=== PATIENT | female | born 1965 | race Hispanic/Latino ===

== ENCOUNTER 2018-04-29 13:55 | Emergency (ER) | payer SELFPAY ==
[2018-04-29 16:13] LABS: Absolute Lymphocytes (CBC) 1.6 K/uL (0.7-4.9); Absolute Monocytes 0.4 K/uL (0.1-1.3); Absolute Neutrophil 3.5 K/uL (1.8-8.0); Basophils % 1.2 % (0-1.3); Eosinophils % 2.7 % (0-4.4); Hematocrit 28.1 % (36.0-45.0); Lymphocytes % 27.8 % (15.3-44.8); MPV 7.9 fL (7.6-11.3); Monocytes % 7.6 % (3.3-12.3); Protime INR 0.95; RBC Red Blood Cell Count 3.98 M/uL (3.86-4.86)
[2018-04-29 16:21] LABS: Urine Blood 1+ (NEG); Urine Glucose NEGATIVE (NEG); Urine Protein TRACE (NEG)
[2018-04-29 16:21] LABS: Urine Bacteria 20-50 /HPF (<20); Urine Culture Reflex Order REFLEXED; Urine Mucus 1+ /HPF (NONE SEEN)
--- NOTE | 2018-04-29 16:21 | RAD REPORT ---
EXAM DESCRIPTION: RAD - Chest Single View - 04/29/2018 4:02 pm CLINICAL HISTORY: Chest pain COMPARISON: None. TECHNIQUE: AP portable chest image was obtained 1550 hours . FINDINGS: Lungs are clear. Heart size is slightly enlarged. Vasculature not outside of normal range. No measurable pleural effusion and no pneumothorax. No acute bony abnormality seen. No acute aortic findings suspected. IMPRESSION: Borderline to mild cardiomegaly without acute failure or volume overload.
--- NOTE | 2018-04-29 16:31 | EKG ---
Test Date: 2018-04-29 Test Time: 14:19:41 Crossword Puzzle Maker: JUSTUS MEASUREMENT RESULTS: Intervals: Rate: 67 MD: 150 QRSD: 84 QT: 436 QTc: 460 Forbes: P: 42 MD: 150 QRS: -19 T: 29 INTERPRETIVE STATEMENTS: Normal sinus rhythm Voltage criteria for left ventricular hypertrophy Possible Lateral infarct, age undetermined Abnormal ECG No previous ECG available for comparison Electronically Signed On 04-29-18 16:30:26 SUBWAY REPAIR SUPERVISOR by Aníbal Lee
[2018-04-29 16:34] LABS: ALT/SGPT 21 U/L (12-78); AST/SGOT 21 U/L (15-37); Albumin 3.7 g/dL (3.4-5.0); Alkaline Phosphatase 100 U/L (45-117); BUN Blood Urea Nitrogen 15 mg/dL (7-18); Bicarbonate 29 mmol/L (21-32); Bilirubin Direct < 0.1 mg/dL (0-0.2); Bilirubin Total 0.2 mg/dL (0.2-1.0); Glucose Level 111 mg/dL (74-106); Magnesium 2.2 mg/dL (1.8-2.4); NT PRO-BNP 328 pg/mL (<125); Potassium 3.5 mmol/L (3.5-5.1); Protein, Total 7.5 g/dL (6.4-8.2); Sodium Level 142 mmol/L (136-145); Troponin (Emerg Dept Use Only) < 0.02 ng/mL (0.0-0.045)
--- NOTE | 2018-04-29 17:07 | ER ---
Nurse's Notes [facility] Name: Abbey Simon Age: 53 yrs Sex: Female : 1965 Arrival Date: 04/29/2018 Time: 14:04 Bed 28 Private MD: Diagnosis: Essential (primary) hypertension Presentation: 04/29 14:08 Presenting complaint: Patient states: Was seen at the [facility] for having high sg blood pressure and left arm pain, was sent to the ED for an EKG due to not having any proper equipment at the clinic, pt denies CP but reports the left arm continues to hurt. Transition of care: patient was not received from another setting of care. Onset of symptoms was April 29, 2018. Risk Assessment: Do you want to hurt yourself or someone else? Patient reports no desire to harm self or others. Initial Sepsis Screen: Does the patient meet any 2 criteria? No. Patient's initial sepsis screen is negative. Does the patient have a suspected source of infection? No. Patient's initial sepsis screen is negative. Care prior to arrival: None. 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 - Social history:: Smoking status: Patient uses tobacco products, denies chronic smoking, but will smoke occasionally. - Ebola Screening: : Patient negative for fever greater than or equal to 101.5 degrees Fahrenheit, and additional compatible Ebola Virus Disease symptoms Patient denies exposure to infectious person Patient denies travel to an Ebola-affected area in the 21 days before illness onset No symptoms or risks identified at this time. Screenin:45 Abuse screen: Denies threats or abuse. Denies injuries from another. Nutritional mg2 screening: No deficits noted. Tuberculosis screening: No symptoms or risk factors identified. Fall Risk IV access (20 points). Assessment: 15:42 General: Appears in no apparent distress. comfortable, Behavior is calm, cooperative. mg2 Pain: Complains of pain in left arm Pain does not radiate. Pain currently is 4 out of 10 on a pain scale. Quality of pain is described as aching, Pain began gradually. Neuro: Level of Consciousness is awake, alert, obeys commands, Oriented to person, place, time, situation. Cardiovascular: Capillary refill < 3 seconds Patient's skin is warm and dry. Respiratory: Airway is patent Respiratory effort is even, unlabored, Respiratory pattern is regular, symmetrical. GI: No signs and/or symptoms were reported involving the gastrointestinal system. : No signs and/or symptoms were reported regarding the genitourinary system. EENT: No signs and/or symptoms were reported regarding the EENT system. Derm: Skin is intact, is healthy with good turgor, Skin is. Musculoskeletal: Circulation, motion, and sensation intact. Capillary refill < 3 seconds, Reports pain in left arm. 16:58 Reassessment: Patient appears in no apparent distress at this time. Patient and/or mg2 family updated on plan of care and expected duration. Pain level reassessed. Patient is alert, oriented x 3, equal unlabored respirations, skin warm/dry/pink. Vital Signs: 14:09 Resp 17; Temp 98.1; Pulse Ox 98% on R/A; Weight 74.84 kg (R); Height 5 ft. 3 in. sg (160.02 cm) (R); Pain 3/10; 14:10 BP 155 / 83; sg 16:58 BP 172 / 84; Pulse 62; Resp 18; Pulse Ox 100% on R/A; Pain 0/10; mg2 17:31 BP 166 / 83; Pulse 65; Resp 18; Pulse Ox 100% on R/A; Pain 0/10; mg2 18:06 BP 162 / 74; Pulse 66; Resp 18; Pulse Ox 100% on R/A; Pain 0/10; mg2 14:09 Body Mass Index 29.23 (74.84 kg, 160.02 cm) sg ED Course: 14:04 Patient arrived in ED. mr 14:07 Arm band placed on. sg 14:09 Triage completed. sg 14:31 EKG done, by land mobile radio technician. reviewed by Frank Armstrong MD. at1 14:59 Balbir Obregon, RN is Primary Nurse. mg2 14:[address] PA is PHCP. jr8 14:59 Frank Armstrong MD is Attending Physician. jr8 15:45 No provider procedures requiring assistance completed. Inserted saline lock: 20 gauge mg2 in left antecubital area, using aseptic technique. Blood collected. 15:46 Patient has correct armband on for positive identification. mg2 16:03 XRAY Chest (1 view) In Process Unspecified. EDMS 17:07 Aníbal Lee MD is Referral Physician. jr8 18:06 IV discontinued, intact, bleeding controlled, No redness/swelling at site. Pressure mg2 dressing applied. Administered Medications: 17:05 CANCELLED (Physician Discretion): Metoprolol 25 mg PO once jr8 17:15 Drug: Enalaprilat 0.625 mg Route: IV; Rate: calculated rate; Site: left antecubital; mg2 18:05 Follow up: Response: No adverse reaction; IV Status: Completed infusion mg2 Outcome: 17:07 Discharge ordered by . jr8 18:06 Discharged to home ambulatory, with family. mg2 18:06 Condition: stable 18:06 Discharge instructions given to patient, family, Instructed on discharge instructions, follow up and referral plans. medication usage, Demonstrated understanding of instructions, follow-up care, medications, Prescriptions given X 1. 18:07 Patient left the ED. mg2 Signatures: Dispatcher [employer] EDMS Efraín Willis, Sharon Fraser RN mr Yvon Lane PA PA jr8 Peyton Mott, supervisor reactor fueling EKG Tat1 Balbir Obregon RN RN mg2 Corrections: (The following items were deleted from the chart) 17:08 16:58 BP 172 / 84; mg2 mg2
--- NOTE | 2018-04-29 17:08 | EDPHYS ---
Physician Documentation [facility] Name: Abbey Simon Age: 53 yrs Sex: Female : 1965 Arrival Date: 04/29/2018 Time: 14:04 Bed 28 Private MD: ED Physician Frank Armstrong HPI: 04/29 16:35 This 53 yrs old Female presents to ER via Ambulatory with complaints of High jr8 Blood Pressure. 16:35 Patient with history of HTN. Went to [facility] today for left arm pain that has jr8 been on/off for the past week. Patient currently on no medication for HTN. [facility] sent her to ED for ECG and work up because they could not do this at there clinic. Patient denies chest pain or shortness of breath. Currently has headache . 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 - Social history:: Smoking status: Patient uses tobacco products, denies chronic smoking, but will smoke occasionally. - Ebola Screening: : Patient negative for fever greater than or equal to 101.5 degrees Fahrenheit, and additional compatible Ebola Virus Disease symptoms Patient denies exposure to infectious person Patient denies travel to an Ebola-affected area in the 21 days before illness onset No symptoms or risks identified at this time. ROS: 16:35 Eyes: Negative for injury, pain, redness, and discharge, ENT: Negative for injury, jr8 pain, and discharge, Neck: Negative for injury, pain, and swelling, Cardiovascular: Negative for chest pain, palpitations, and edema, Respiratory: Negative for shortness of breath, cough, wheezing, and pleuritic chest pain, Abdomen/GI: Negative for abdominal pain, nausea, vomiting, diarrhea, and constipation, Back: Negative for injury and pain, Skin: Negative for injury, rash, and discoloration. 16:35 MS/extremity: Positive for pain, of the left arm. 16:35 Neuro: Positive for headache, Negative for altered mental status, dizziness, gait disturbance, hearing loss, loss of consciousness, numbness, seizure activity, speech changes, syncope, near syncope, tingling, tinnitus, tremor, visual changes, weakness. Exam: 16:35 Eyes: Pupils equal round and reactive to light, extra-ocular motions intact. Lids and jr8 lashes normal. Conjunctiva and sclera are non-icteric and not injected. Cornea within normal limits. Periorbital areas with no swelling, redness, or edema. ENT: Nares patent. No nasal discharge, no septal abnormalities noted. Tympanic membranes are normal and external auditory canals are clear. Oropharynx with no redness, swelling, or masses, exudates, or evidence of obstruction, uvula midline. Mucous membranes moist. Neck: Trachea midline, no thyromegaly or masses palpated, and no cervical lymphadenopathy. Supple, full range of motion without nuchal rigidity, or vertebral point tenderness. No Meningismus. Cardiovascular: Regular rate and rhythm with a normal S1 and S2. No gallops, murmurs, or rubs. Normal PMI, no JVD. No pulse deficits. Respiratory: Lungs have equal breath sounds bilaterally, clear to auscultation and percussion. No rales, rhonchi or wheezes noted. No increased work of breathing, no retractions or nasal flaring. Abdomen/GI: Soft, non-tender, with normal bowel sounds. No distension or tympany. No guarding or rebound. No evidence of tenderness throughout. Back: No spinal tenderness. No costovertebral tenderness. Full range of motion. Skin: Warm, dry with normal turgor. Normal color with no rashes, no lesions, and no evidence of cellulitis. Neuro: Awake and alert, GCS 15, oriented to person, place, time, and situation. Cranial nerves II-XII grossly intact. Motor strength 5/5 in all extremities. Sensory grossly intact. Cerebellar exam normal. Normal gait. 16:35 Musculoskeletal/extremity: Extremities: grossly normal except: noted in the left arm: Patient has tenderness to left anterior shoulder and glenoid cavity. Pain with ROM. Full ROM with normal sensation and 2+ radial pulses bilaterally . Vital Signs: 14:09 Resp 17; Temp 98.1; Pulse Ox 98% on R/A; Weight 74.84 kg (R); Height 5 ft. 3 in. sg (160.02 cm) (R); Pain 3/10; 14:10 BP 155 / 83; sg 16:58 BP 172 / 84; Pulse 62; Resp 18; Pulse Ox 100% on R/A; Pain 0/10; mg2 17:31 BP 166 / 83; Pulse 65; Resp 18; Pulse Ox 100% on R/A; Pain 0/10; mg2 18:06 BP 162 / 74; Pulse 66; Resp 18; Pulse Ox 100% on R/A; Pain 0/10; mg2 14:09 Body Mass Index 29.23 (74.84 kg, 160.02 cm) sg MDM: 15:00 Patient medically screened. mona 17:05 Data reviewed: vital signs, nurses notes, lab test result(s), EKG, radiologic studies, [facility] plain films, and as a result, I will discharge patient. Data interpreted: Pulse oximetry: on room air is 98 %. Interpretation: normal. Counseling: I had a detailed discussion with the patient and/or guardian regarding: the historical points, exam findings, and any diagnostic results supporting the discharge/admit diagnosis, lab results, radiology results, the need for outpatient follow up, a glass tinter, a family practitioner, to return to the emergency department if symptoms worsen or persist or if there are any questions or concerns that arise at home. ED course: Detailed discussion with patient that she has the beginnings of enlarged heart on imaging. Probably secondary to longstanding HTN. Need to start on BP medications which we will start her on. Told her she needs to f/u with cardiology and family medicine. Explained side effects of medication to her as well. 04/29 15:35 Order name: Basic Metabolic Panel; Complete Time: 16:38 04/29 15:35 Order name: CBC with Diff 04/29 15:35 Order name: LFT's; Complete Time: 16:38 04/29 15:35 Order name: Magnesium; Complete Time: 16:38 04/29 15:35 Order name: NT PRO-BNP; Complete Time: 16:38 04/29 15:35 Order name: PT-INR; Complete Time: 16:35 04/29 15:35 Order name: Troponin (emerg Dept Use Only); Complete Time: 16:38 04/29 15:35 Order name: XRAY Chest (1 view); Complete Time: 16:35 jr8 01/10 15:50 Order name: Urine Microscopic Only; Complete Time: 16:35 [facility] 04/29 16:02 Order name: Urine Dipstick--Ancillary (enter results); Complete Time: 16:35 [facility] 04/29 16:02 Order name: Urine --Ancillary (enter results); Complete Time: 16:35 [facility] 04/29 16:21 Order name: CBC Smear Scan [facility] 04/29 16:23 Order name: Urine Culture [facility] 04/29 15:35 Order name: EKG; Complete Time: 15:36 8 04/29 15:35 Order name: Cardiac monitoring; Complete Time: 15:41 8 04/29 15:35 Order name: EKG - Nurse/Tech; Complete Time: 15:41 8 04/29 15:35 Order name: IV Saline Lock; Complete Time: 15:41 8 04/29 15:35 Order name: Labs collected and sent; Complete Time: 15:41 8 04/29 15:35 Order name: O2 Per Protocol; Complete Time: 15:41 [facility] 04/29 15:35 Order name: O2 Sat Monitoring; Complete Time: 15:41 Administered Medications: 17:05 CANCELLED (Physician Discretion): Metoprolol 25 mg PO once jr8 17:15 Drug: Enalaprilat 0.625 mg Route: IV; Rate: calculated rate; Site: left antecubital; mg2 18:05 Follow up: Response: No adverse reaction; IV Status: Completed infusion mg2 Disposition: 04/30 07:02 Co-signature as Attending Physician, Frank Armstrong MD I agree with the assessment and mona plan of care. Disposition: 04/29/18 17:07 Discharged to Home. Impression: Essential (primary) hypertension. - Condition is Stable. - Discharge Instructions: Hypertension. - Prescriptions for Lisinopril- Hydrochlorothiazide 20-12.5 mg Oral Tablet - take 1 tablet by ORAL route once daily; 20 tablet. - Medication Reconciliation Form, Thank You Letter, Antibiotic Education, Prescription Opioid Use form. - Follow up: Aníbal Lee MD; When: 5 - 6 days; Reason: If symptoms return, Recheck today's complaints, Continuance of care, Re-evaluation by your physician. - Problem is new. - Symptoms have improved. Signatures: Dispatcher [employer] EDEfraín Munoz, RN RN sg Frank Armstrong MD MD cha Roszak, Josh, PA PA jr8 Balbir Obregon, RN RN mg2 Corrections: (The following items were deleted from the chart) 04/29 17:05 17:01 Metoprolol 25 mg PO once ordered. jr8 jr8 18:07 17:07 04/29/2018 17:07 Discharged to Home. Impression: Essential (primary) mg2 hypertension. Condition is Stable. Forms are Medication Reconciliation Form, Thank You Letter, Antibiotic Education, Prescription Opioid Use. Follow up: Aníbal Lee; When: 5 - 6 days; Reason: If symptoms return, Recheck today's complaints, Continuance of care, Re-evaluation by your physician. Problem is new. Symptoms have improved. jr8
[2018-04-29] MEDS ORDERED: ENALAPRILAT 1.25 MG/ML VIAL IV ONE (17:19)
[2018-04-29 18:36] LABS: Anisocytosis 2+; Blood Morphology Comment NOTED (NOT SEEN); Hypochromasia 2+; Platelet Estimate INCR; Urine White Blood Cell Casts OK
== END 2018-04-29 18:07 | disposition home or self-care (01) ==
LOC: ER 13:55
DX: I10 Essential (primary) hypertension (principal); Z72.0 Tobacco use
CPT/HCPCS: 36415; 71045; 80048; 80076; 81003; 81015; 81025; 83735; 83880; 84484; 85025; 85610; 87086; 87088; 93005; 96365; 99284